=== PATIENT | female | born 1995 | race Caucasian/White ===

== ENCOUNTER 2021-01-13 12:19 | Emergency (ER) | payer BC, OTHER ==
[2021-01-13 12:55] VITALS: BP 150/95; PULSE 66; TEMP 97.9; BMI 29.1
[2021-01-13] MEDS ORDERED: KETOROLAC TROMETHAMINE 30 MG/1 ML VIAL IM ONE (12:59)
[2021-01-13] MEDS ORDERED: diazePAM 5 MG TABLET PO ONE (13:00)
[2021-01-13] MEDS ORDERED: diphenhydrAMINE HCL 25 MG CAPSULE (FP) PO ONE (13:00)
== END 2021-01-13 14:16 | disposition home or self-care (01) ==
LOC: JERFT 12:19
PROC: 3E0233Z Introduction of Anti-inflammatory into Muscle, Percutaneous Approach (ICD-10-PCS; principal; 2021-01-13)
DX: G44.209 Tension-type headache, unspecified, not intractable (principal)
CPT/HCPCS: 99284-25

== ENCOUNTER 2022-08-09 17:16 | Emergency (ER) | payer BC, OTHER ==
[2022-08-09 17:44] VITALS: BP 128/76; PULSE 67; RESP 18; TEMP 98.1; BMI 31.2
[2022-08-09] MEDS ORDERED: FAMOTIDINE 20 MG/50 ML IVPB 20 MG/50 ML MG IVPB ONE ×2 (18:27→18:46)
[2022-08-09] MEDS ORDERED: ACETAMINOPHEN 1000 MG/100 ML BAG IVPB ONE (18:27)
[2022-08-09] MEDS ORDERED: SUCRALFATE 1 GM TABLET (FP) PO ONE (18:27)
[2022-08-09] MEDS ORDERED: MAG HYDROX/AL HYDROX/SIMETH -MYLANTA- ORAL SUSPENSION PO ONE (18:27)
[2022-08-09] MEDS ORDERED: SUCRALFATE 1 GM TABLET (FP) ONE (18:45)
[2022-08-09] MEDS ORDERED: MAG HYDROX/AL HYDROX/SIMETH 30 ML UNIT-DOSE CUP ONE (18:46)
[2022-08-09] MEDS ORDERED: ACETAMINOPHEN INJECTION 100 ML IVPB ONE (18:46)
[2022-08-09 19:00] LABS: BASO % 0.2 % (0-2.0); EOS % 0.9 % (0-4.5); HEMATOCRIT 37.3 % (32.4-45.2); HEMOGLOBIN 12.6 GM/dL (10.7-15.3); LYMPH % 14.8 % (8-40); MCH 29.8 pg (25.7-33.7); MCHC 33.9 g/dl (32.0-36.0); MEAN CELL VOLUME 87.9 fl (80-96); MEAN PLT VOLUME 8.3 fl (7.5-11.1); MONO % 8.2 % (3.8-10.2); NEUT % 75.9 % (42.8-82.8); PLATELET COUNT 215 10^3/uL (134-434); RBC 4.24 M/mm3 (3.60-5.2); RDW 13.4 % (11.6-15.6); WHITE BLOOD COUNT 7.1 K/mm3 (4.0-10.0)
[2022-08-09 19:16] LABS: BLOOD UREA NITROGEN 13.2 mg/dL (7-18)
[2022-08-09 19:18] LABS: ALBUMIN 3.5 g/dl (3.4-5.0); CALCIUM 8.6 mg/dL (8.5-10.1)
[2022-08-09 19:22] LABS: BILIRUBIN,TOTAL 0.3 mg/dL (0.2-1); CREATININE 0.7 mg/dL (0.55-1.3); TOT PROT 6.9 g/dl (6.4-8.2)
[2022-08-09] MEDS ORDERED: PANTOPRAZOLE 40 MG TABLET PO ONE ×2 (20:31→20:33)
== END 2022-08-09 20:35 | disposition home or self-care (01) ==
LOC: JER 17:16
PROC: 3E033GC Introduction of Other Therapeutic Substance into Peripheral Vein, Percutaneous Approach (ICD-10-PCS; principal; 2022-08-09)
PROC: 3E033NZ Introduction of Analgesics, Hypnotics, Sedatives into Peripheral Vein, Percutaneous Approach (ICD-10-PCS; 2022-08-09)
DX: K29.00 Acute gastritis without bleeding (principal)
CPT/HCPCS: 36415; 71046-TC-FY; 76705-TC; 80053; 83690; 84703; 85025; 99285-25